=== PATIENT | female | born 1960 | race Caucasian/White ===

== ENCOUNTER 2017-12-11 14:31 | Outpatient (CLI) | payer OTHER | END 2017-12-11 14:32 | disposition home or self-care (01) | LOC: BICULT 14:31 | PROVIDERS: ATTEND Physician Assistant | DX: R09.89 Other specified symptoms and signs involving the circulatory and respiratory systems (principal); E07.9 Disorder of thyroid, unspecified | CPT/HCPCS: 93880 ==

== ENCOUNTER 2017-12-16 13:25 | Outpatient (CLI) | payer OTHER ==
--- NOTE | 2017-12-16 15:28 | ULT ---
THYROID ULTRASOUND HISTORY: Bilateral densities of the thyroid lobe noted on carotid ultrasound. COMPARISON: None. TECHNIQUE: Sagittal and transverse imaging of the thyroid gland is performed. FINDINGS: The thyroid isthmus measures 0.2 cm. The right thyroid lobe measures 3.9 x 1.3 x 1.4 cm. The left thyroid lobe measures 3.9 x 1.2 x 1.3 c m. There is a solid echotexture mass in the mid pole of the right thyroid lobe, measuring 1.1 x 1.3 x 1. 2 cm. Smaller hypoechoic lesions in the right thyroid lobe are noted. There is a 0.6 x 0.6 x 0.3 cm lesion in the region of the right thyroid lobe and thyroid isthmus, which has a hypoechoic echotextu re. There is a solid echotexture lesion in the lower pole of the left thyroid lobe, measuring 0.8 x 0.8 x 0.7 cm. Additional smaller solid echotexture lesions measuring 0.5 and 0.6 cm are noted in the left thyroid lobe. IMPRESSION: Multiple solid nodules. The largest solid nodule is in the mid pole of the right thyroid lobe and blanco s a TI-RADS calculated score of 3. Follow-up imaging in one year is recommended for this mildly susp icious lesion. POS: MABLE
== END 2017-12-16 13:26 | disposition home or self-care (01) ==
LOC: SCSULT 13:25
PROVIDERS: ATTEND Family Medicine
DX: E07.9 Disorder of thyroid, unspecified (principal); E04.2 Nontoxic multinodular goiter
CPT/HCPCS: 76536

== ENCOUNTER 2019-08-24 13:24 | Outpatient (CLI) | payer OTHER ==
--- NOTE | 2019-08-24 15:18 | RAD ---
EXAM: Two views chest PROVIDED CLINICAL HISTORY: Dyspnea and cough. COMPARISON: May 24, 2019 obtained at [facility]. FINDINGS: Cardiac silhouette and pulmonary vasculature are within normal limits. The lungs are clear. The osse ous structures have a normal appearance. No interval change from prior exam. IMPRESSION: No acute cardiopulmonary process.
== END 2019-08-24 13:25 | disposition home or self-care (01) ==
LOC: BICRAD 13:24
PROVIDERS: ATTEND Internal Medicine Pulmonary Disease
DX: R06.00 Dyspnea, unspecified (principal)
CPT/HCPCS: 71046

== ENCOUNTER 2019-11-02 11:30 | Outpatient (CLI) | payer OTHER ==
--- NOTE | 2019-11-02 13:38 | CT ---
CT neck soft tissues with contrast: 11/02/2019 HISTORY: 59-year-old female with cough. COMPARISON: None FINDINGS: Nonspecific prominent interstitial markings at the lung apices. No abscess or cervical lymphadenopathy. Nonspecific finding of partial effacement of the left piriform sinus, posterior portion via an approx imately 0.5 x 1.3 cm soft tissue density structure (as measured on axial image 60 of 147, series 8) which is draped over anterior surface of the medial analyzed left distal common carotid artery. This is probably just the left posterior pharyngeal wall, which may or may not be thickened. The rest of the larynx is unremarkable. 1.2 cm solid nodule at posterior aspect of right lobe of thyroid gland. Trachea is patent and clear. The maxillary, sphenoid, and ethmoid, sinuses, are grossly clear. Bilateral tympanomastoid cavities are clear. No destructive osseous lesion identified. 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 IMPRESSION: 1.) Nonspecific finding of effacement of left piriform sinus of the hypopharynx. This may be in part or entirely due to medialized left common carotid artery. 2) nonspecific right thyroid nodule. 3) otherwise negative neck. 4) nonspecific prominent interstitial markings in the lungs.
--- NOTE | 2019-11-02 13:52 | CT ---
CT CHEST WITH CONTRAST: 11/02/19 INDICATIONS: Cough. FINDINGS: No evidence of inflammatory infiltrate. No evidence of effusion. Mild interstitial thickening is seen in the periphery of both lungs. Small 4 mm nodule along the ravindra r fissure right mid lung seen on image 23 of axial. Stranding in the posterior right lung base. Mediastinum unremarkable. No evidence of adenopathy. Thoracic aorta unremarkable. Proximal pulmonary arteries are opacified with no evidence of proximal pulmonary embolus. Images through the upper abdomen unremarkable. Osseous structures unremarkable. IMPRESSION: 1. Chronic lung parenchymal changes are seen with mild diffuse interstitial thickening seen in the periphery of both lungs and the posterior lung bases. 2. Small nodule in the right mid lung. 3. No acute lung process. 4. Suggest follow-up CT chest without IV contras tin 6 to 12 months to confirm stability of the small nodule. POS: AGW
== END 2019-11-02 11:31 | disposition home or self-care (01) ==
LOC: SCSCT 11:30
PROVIDERS: ATTEND Internal Medicine Infectious Disease
DX: R05 Cough (principal); M54.2 Cervicalgia; R91.1 Solitary pulmonary nodule; J98.4 Other disorders of lung; E04.1 Nontoxic single thyroid nodule
CPT/HCPCS: 70491; 71260

== ENCOUNTER 2020-02-07 22:16 | Emergency (ER) | payer OTHER ==
[2020-02-07] MEDS ORDERED: EPINEPHrine 1 MG/ML AMP ONE ×2 (22:26→22:34)
[2020-02-07] MEDS ORDERED: diphenhydrAMINE 50 MG/ML VIAL ONE (22:34)
[2020-02-07] MEDS ORDERED: Famotidine/PF 20 mg/2ml Vial ONE (22:34)
[2020-02-07] MEDS ORDERED: methylPREDNISolone Sod Succ/PF 125 MG/2 ML VIAL ONE ×3 (22:34→22:54)
== END 2020-02-08 00:34 | disposition home or self-care (01) ==
LOC: ERS 22:16
DX: T78.2XXA Anaphylactic shock, unspecified, initial encounter (principal); K58.9 Irritable bowel syndrome, unspecified; F32.9 Major depressive disorder, single episode, unspecified; Z79.899 Other long term (current) drug therapy
CPT/HCPCS: 96372; 96374; 96375; J0171; J1200; J2930; S0028